=== PATIENT | female | born 1985 | race Caucasian/White ===

== ENCOUNTER 2022-02-18 06:49 | Day surgery (SDC) | payer OTHER ==
[~2022-02-18] VITALS: Ht 165.1 cm; Wt 79.8 kg
[2022-02-18] MEDS ORDERED: CEFAZOLIN SOD 1 GM in D5W 50 ML IV ONE (07:00)
[2022-02-18 07:33] LABS: HCG,QUAL RESULT NEGATIVE (NEGATIVE)
[2022-02-18] MEDS ORDERED: SUGAMMADEX SODIUM 200 MG/2 ML VIAL IV ONE (11:00)
[2022-02-18] MEDS ORDERED: DESFLURANE 15 MIN GAS INH ONE (11:00)
[2022-02-18] MEDS ORDERED: ONDANSETRON HCL 4 MG/2 ML VIAL IVP ONE (11:00)
[2022-02-18] MEDS ORDERED: NS IRRIG SOLN 1000 ML IR ONE (11:00)
[2022-02-18] MEDS ORDERED: LR 1,000 ML IV.SOLN IV ONE (11:00)
[2022-02-18] MEDS ORDERED: ROCURONIUM BROMIDE 10 MG/ML (ZEMURON) IV ONE (11:00)
[2022-02-18] MEDS ORDERED: DEXAMETHASONE SOD PHOSPHATE 4 MG/ML VIAL IVP ONE (11:00)
[2022-02-18] MEDS ORDERED: KETOROLAC TROMETHAMINE 30 MG VIAL IVP ONE (11:00)
[2022-02-18] MEDS ORDERED: NS 1000 ML IV.SOLN IV ONE (11:00)
[2022-02-18] MEDS ORDERED: PROPOFOL 200MG/ 20ML VIAL (DIPRIVAN) IV ONE (11:00)
[2022-02-18] MEDS ORDERED: MIDAZOLAM HCL 5 MG/5 ML VIAL IVP ONE ×2 (11:00)
[2022-02-18] MEDS ORDERED: LIDOCAINE 2%, 20 ML MDV INJ ONE (11:00)
[2022-02-18] MEDS ORDERED: ACETAMINOPHEN I.V. 1000 MG 100 ML IV ONE ×2 (11:46→11:48)
[2022-02-18] MEDS ORDERED: HYDROmorphone 1 MG/ML INJ. CARTRIDGE IVP PRN ×2 (12:00)
[2022-02-18] MEDS ORDERED: hydrALAZINE HCL 20 MG/ML VIAL IVP PRN (12:00)
[2022-02-18] MEDS ORDERED: MIDAZOLAM HCL 2 MG/2 ML VIAL (VERSED) IVP PRN (12:00)
[2022-02-18] MEDS ORDERED: LABETALOL 100 MG/ 20ML VIAL IVP PRN (12:00)
[2022-02-18] MEDS ORDERED: LR 1,000 ML IV SCH (12:00)
[2022-02-18] MEDS ORDERED: MEPERIDINE HCL/PF 25 MG/ML DISP.SYRIN IVP PRN (12:00)
[2022-02-18] MEDS ORDERED: METOCLOPRAMIDE HCL 10 MG/2 ML VIAL IVP PRN (12:00)
[2022-02-18] MEDS ORDERED: OXYCODONE/ACETAMINOPHEN 5-325 TABLET PO PRN ×2 (13:30)
[2022-02-18] MEDS ORDERED: HYDROcodone/ACETAMIN 5-325 MG TAB (NORCO/ VICODIN) PO PRN (13:30)
[2022-02-18] MEDS ORDERED: ONDANSETRON HCL 4 MG/2 ML VIAL IVP PRN (13:30)
[2022-02-18] MEDS ORDERED: HYDROmorphone 1 MG/ML INJ. CARTRIDGE ONE (13:39)
[2022-02-18] MEDS ORDERED: METOCLOPRAMIDE HCL 10 MG/2 ML VIAL ONE (13:44)
[2022-02-18] MEDS ORDERED: MIDAZOLAM HCL 2 MG/2 ML VIAL (VERSED) ONE (14:24)
[2022-02-18] MEDS ORDERED: ONDANSETRON HCL 4 MG/2 ML VIAL ONE (16:26)
[2022-02-18 16:51] VITALS: BP_SYST 109
== END 2022-02-18 18:00 | disposition home or self-care (01) ==
LOC: SDS 06:49 → SMU 06:51 → SDS 18:00
PROVIDERS: ATTEND Specialist
DX: D25.1 Intramural leiomyoma of uterus (principal); R10.2 Pelvic and perineal pain; N92.6 Irregular menstruation, unspecified; N83.202 Unspecified ovarian cyst, left side; Z79.899 Other long term (current) drug therapy; Z20.822 Contact with and (suspected) exposure to COVID-19
CPT/HCPCS: 36415 ×2; 58674; 58558; 84703; 87426; U0003; J3490; J0690; J1100; J1885; J2001; J2765; J2250; J3465; J2405; J2704; J1170; J7060; J7120; J7030; J0131